=== PATIENT | female | born 1950 | race Caucasian/White ===

== ENCOUNTER 2019-07-28 18:51 | Emergency (ER) | payer MEDICARE, BC ==
--- NOTE | 2019-07-28 19:03 | EDM.PDOC ---
ED HPI GENERAL MEDICAL PROBLEM - General Stated Complaint: FALL Time Seen by Provider: 07/28/19 19:01 Source of Information: Reports: Patient History Limitations: Reports: No Limitations - History of Present Illness INITIAL COMMENTS - FREE TEXT/NARRATIVE: Patient comes emergency department today with complaints of an injury to the left wrist. Just prior to arrival the patient was sitting on a stool when she fell off landing on her left wrist. She is really unsure of how she fell on it or which way it went when she fell. She denies any injury to her shoulder humerus elbow or forearm. She denies any paresthesia of her left hand. She did not hit her head. There was no loss of consciousness. She is able to flex and extend the fingers appropriately. Is quite painful to flex and extend and rotate the wrist. She denies any paresthesias of the upper left extremity. - Related Data Home Meds: Home Meds Hydrocodone/Acetaminophen [Hydrocodone-Acetamin 5-325 mg] 1 each PO Q6HR PRN # 12 tablet 07/28/19 [Rx] Review of Systems - Review of Systems Review Of Systems: Comprehensive ROS is negative, except as noted in HPI. ED EXAM, GENERAL - Physical Exam Exam: See Below Exam Limited By: No Limitations General Appearance: Alert, WD/WN, No Apparent Distress Respiratory/Chest: No Respiratory Distress Cardiovascular: Normal Peripheral Pulses Peripheral Pulses: 2+: Radial (L), Radial (R), Posterior Tibial (L), Posterior Tibial (R), Dorsalis Pedis (L), Dorsalis Pedis (R) Extremities: No: Normal Inspection (Examination of left upper extremity shows quite a bit of swelling on the volar surface of the left distal wrist. There is no breaks in the skin. There is no overt deformity. Rest of the left upper extremity is unremarkable and atraumatic. No breaks in the skin.) Neurological: Alert, Oriented, Normal Cognition, No Motor/Sensory Deficits Psychiatric: Normal Affect, Normal Mood ED TRAUMA EXTREMITY PROCEDURES - Splinting Left Upper Extremity Splint Site: left forearm Pre-Procedure NV Status: Normal Post-Procedure NV Status: Normal Splint Material: Fiberglass Splint Design: Sugar Tong Applied & Form Fitted By: Provider Provider Post-Splint Application NV Check: NV Status Normal, Good Position Complications: No Course - Orders/Labs/Meds Meds: Medications Discontinued Medications Generic Name Dose Route Start Last Admin Trade Name Freq PRN Reason Stop Dose Admin Hydrocodone Bitart/Acetaminophen 1 packet 07/28/19 20:04 07/28/19 20:11 Take Home: Acetam/Hydrocodon 325-5 Mg, 5 Pack PO 07/28/19 20:05 1 packet ONETIME ONE Administration - Radiology Interpretation Free Text/Narrative:: Cute nondisplaced fracture distal radius metaphyseal seen on the AP and lateral views no evidence of significant displacement. - Re-Assessments/Exams Free Text/Narrative Re-Assessment/Exam: 07/28/19 20:31 A well molded Ortho-Glass sugar tong splint was placed the left arm in the position in neutral. With a stockinette and good padding prior to the application of the fiberglass splint. CMS was intact after the application. Only it was noted that the patient's blood pressure is quite elevated over 200 systolically. She has no chest pain or shortness of breath or difficulty breathing. No headache visual changes or disturbances. I would like to discuss with her at length about my concerns of her high blood pressure especially when she has peripheral vascular disease of her lower extremities with quite a bit of edema to her lower extremities that she relates is from blood clots and poor circulation to her lower extremities. She refuses a work- up of her blood pressure which is fine at this time as guided by the [employer] emergency physicians asymptomatic hypertension does not need initial of evaluation and management although her blood pressure is quite high. She refuses any work-up evaluation or care for her hypertension. She states that it is white coat syndrome. She is understanding of the risk of stroke dialysis and heart failure with this very high blood pressure that is not managed. Follow-up with primary care provider. She is understanding of the risk of hypertension untreated and her questions were answered. We will send her home with [place] for pain. Follow up with ortho in 1 week for recheck. She is comfortable with this plan and her questions answered. Departure - Departure Time of Disposition: 19:55 Disposition: Home, Self-Care 01 Clinical Impression: Radius distal fracture Qualifiers: Encounter type: initial encounter Fracture type: closed Fracture morphology: unspecified fracture morphology Laterality: left Qualified Code(s): S52.502A - Unspecified fracture of the lower end of left radius, initial encounter for closed fracture - Discharge Information Prescriptions: Hydrocodone/Acetaminophen [Hydrocodone-Acetamin 5-325 mg] 1 each PO Q6HR PRN # 12 tablet PRN Reason: Pain Instructions: Cast or Splint Care, Adult, [id number], Wrist Fracture Treated With Immobilization, [id number] Referrals: Nate Malcolm MD [Primary Care Provider] - Additional Instructions: Tylenol and or Ibuprofen as needed for pain. Splint at all times. Do not get the splint wet. Ice to area as much as possible in the next few days. Elevate above the level of the heart as much as possible. If pain not controlled with above. [place] 1 tablet every 6 hrs with food as needed for pain. Starter pack from the ED sent and Rx sent to [facility]. Return to the ED if new or worsening symptoms. Follow up with ortho in either [place] or [place] in 1 week for recheck. Hand surgery in [place] [phone]. [place] [phone] Follow up with PCP next available for evaluation of your blood pressure. Sepsis Event Note - Focused Exam Date Exam was Performed: 07/28/19 Time Exam was Performed: :27 - Assessment/Plan Assessment:: Left nondisplaced distal radius fracture. Orthoglass splint applied by myself. Hypertesion very high refuses any work up of it. Plan: Tylenol and or Ibuprofen as needed for pain. Splint at all times. Do not get the splint wet. Ice to area as much as possible in the next few days. Elevate above the level of the heart as much as possible. If pain not controlled with above. [place] 1 tablet every 6 hrs with food as needed for pain. Starter pack from the ED sent and Rx sent to [facility]. Return to the ED if new or worsening symptoms. Follow up with ortho in either [place] or [place] in 1 week for recheck. Hand surgery in [place] [phone]. [place] [phone] Follow up with PCP next available for recheck of blood pressure.
--- NOTE | 2019-07-28 19:50 | CR ---
[id number] RAD/RAD Wrist Left 3V Min Exam: RAD Wrist Left 3V Min Indication:FALL, LEFT WRIST INJURY Comparison: No prior imaging for comparison. Discussion: Acute nondisplaced fracture distal radial metaphysis seen on the AP and lateral views. No evidence of significant displacement. No evidence of intra-articular extension on the available views. No other acute findings. Diffuse bone demineralization. Impression: Acute nondisplaced distal radial metaphysis fracture. Asif Montgomery MD 07/28/19 1949 Thank you for allowing us to participate in the care of your patient.
[2019-07-28] MEDS ORDERED: Take Home: Acetaminophen/HYDROcodone 325-5 MG, 5 Tab Pack PO ONE (20:04)
== END 2019-07-28 20:18 | disposition home or self-care (01) ==
LOC: VM.ED 18:51
DX: S52.502A Unspecified fracture of the lower end of left radius, initial encounter for closed fracture (principal); W08.XXXA Fall from other furniture, initial encounter
CPT/HCPCS: 29125; 73110; 99283; A9270

== ENCOUNTER 2020-07-20 06:47 | Day surgery (SDC) | payer MEDICARE, BC ==
[2020-07-20] MEDS ORDERED: Lactated Ringers 1,000 ML IV SCH (07:00)
[2020-07-20] MEDS ORDERED: fentaNYL 100 MCG/2 ML SDV ONE (08:03)
[2020-07-20] MEDS ORDERED: Propofol 200 MG/20 ML SDV ONE ×2 (08:03→08:30)
--- NOTE | 2020-07-20 14:14 | OR ---
DATE OF SURGERY: 07/20/2020. REFERRING PROVIDER: Elvi Lerma MD PRE-OPERATIVE DIAGNOSES: 1. Positive FIT stool card. This is the patient's first colonoscopy. She denies any family history of colon cancer. 2. Chronic diarrhea with urgency since March. The patient averages 2 to 4 stools per day. She did have increased fecal calprotectin level. POST-OPERATIVE DIAGNOSES: 1. A total of 6 polyps removed today. a. 4 mm polyp at entry to the cecum, removed with cold snare. b. 5 mm polyp at 30 cm, removed with hot snare. c. 4 rectal polyps measuring 6 mm, 5 mm, 4 mm, and 4 mm, all removed using hot snare. 2. Mild sigmoid diverticulosis. 3. Normal-appearing distal ileum. Random biopsy x2 bites taken using cold forceps. 4. Questionable faint inflammation of the colonic mucosa throughout the colon. Random colon biopsies taken. PROCEDURE: Colonoscopy with polypectomy x6, all using snare with 5 of them being hot snare (random biopsies taken from the distal ileum as well as randomly throughout the colon). SURGEON: Leandro Gastelum M.D. ANESTHESIA: Monitored anesthesia care. BOWEL PREP: Fair to good. Did require moderate irrigation and suctioning. Radha, who goes by Liz, is a 70-year-old female who was brought to the endoscopy suite after discussing risks and benefits of the procedure. Informed consent was obtained for conscious sedation and colonoscopy with or without biopsy and/or polypectomy. We also discussed possibility of missed lesions. Pre-procedure exam was unremarkable. IV, oxygen, and monitors were placed. The patient was placed in the left lateral decubitus position. Sedation was administered and a digital rectal exam was performed and unremarkable except for some hemorrhoids with some irritation. Colonoscope was passed into the rectum and slowly advanced all the way to the cecum. Ileocecal valve was intubated and distal ileum was normal in appearance. Cold biopsy x2 bites were taken. Cecum was viewed and photographed. The colonoscope was slowly withdrawn and the mucosa was closed observed in a direct circumferential manner. The ascending colon was remarkable for a 4 mm polyp at the entry to the cecum, removed using cold snare. The transverse colon was unremarkable. The descending colon was unremarkable. The sigmoid colon revealed some mild diverticulosis. There is also a 5 mm polyp at 30 cm, removed using hot snare. Rectal mucosa revealed a total of 4 polyps ranging in size from 4 to 6 mm (see above). These were all removed using hot snare. Retroflexion was performed and rectal mucosa was unremarkable except for some minimal hemorrhoids. Scope was removed. The patient tolerated the procedure well. The patient was monitored until that baseline status. Discharge instructions were reviewed and the patient was discharged in good condition. COMPLICATIONS: None. TOTAL TIME: 37 minutes. ESTIMATED BLOOD LOSS: About 1 to 2 mL. RECOMMENDATIONS/FOLLOW-UP: We will await results of path report to determine ideal followup interval as well as need for any additional treatment or referral. I will wait and have her resume her warfarin tomorrow to limit any chance of bleeding from the polypectomy sites as well as the biopsy sites. I would like to kindly thank Dr. Lerma for this referral. DMB: 07/20/2020 11:51:41 MODL: 07/20/2020 13:47:09 /[id number]
== END 2020-07-20 10:25 | disposition home or self-care (01) ==
LOC: VM.SDS 06:47
PROVIDERS: ATTEND Family Medicine
DX: D12.0 Benign neoplasm of cecum (principal); D12.6 Benign neoplasm of colon, unspecified; K62.1 Rectal polyp; K52.832 Lymphocytic colitis; K57.30 Diverticulosis of large intestine without perforation or abscess without bleeding; K64.9 Unspecified hemorrhoids; K63.89 Other specified diseases of intestine; I10 Essential (primary) hypertension; E03.9 Hypothyroidism, unspecified; F17.210 Nicotine dependence, cigarettes, uncomplicated; Z88.0 Allergy status to penicillin; Z79.01 Long term (current) use of anticoagulants; Z79.890 Hormone replacement therapy; Z79.899 Other long term (current) drug therapy; Z86.718 Personal history of other venous thrombosis and embolism
CPT/HCPCS: 00811; 85610; 88305; J2704; J3010; J7120

== ENCOUNTER 2022-02-15 10:30 | Emergency (ER) | payer MEDICARE, BC ==
[2022-02-15 11:29] LABS: ANION GAP 18.3 mmol/L (5-15)
[2022-02-15] MEDS: Acetaminophen/oxyCODONE 325-5 MG Tab PO ONE (11:30)
[2022-02-15] MEDS: Sodium Chloride 0.9% 1,000 ML IV SCH (11:30)
== END 2022-02-15 12:35 | disposition home or self-care (01) ==
LOC: SUPCPDRO 10:30 → VM.ED 10:30
DX: S32.009A Unspecified fracture of unspecified lumbar vertebra, initial encounter for closed fracture (principal); N28.9 Disorder of kidney and ureter, unspecified; I10 Essential (primary) hypertension; Z88.0 Allergy status to penicillin; Z79.899 Other long term (current) drug therapy; Z79.01 Long term (current) use of anticoagulants; Z90.49 Acquired absence of other specified parts of digestive tract; Z90.710 Acquired absence of both cervix and uterus
CPT/HCPCS: 36415; 80048; 96360; 99283-25; 99284; A9270-GY; J7030

== ENCOUNTER 2024-09-29 15:14 | Inpatient (IN) | payer MEDICARE, BC ==
[2024-09-29] MEDS ORDERED: Ondansetron 4 MG/2 ML SDV IV PRN (16:11)
[2024-09-29 22:03] LABS: BLOOD UREA NITROGEN,BUN 26.0 mg/dL (7-18); CARBON DIOXIDE,CO2 26.0 mmol/L (21-32); CHLORIDE,CL 86.0 mmol/L (98-107); CREATININE 1.9 mg/dL (0.55-1.02); EST CRCL DRUG DOSING (CG) 22.81 mL/min; GLUCOSE RANDOM 151.0 mg/dL (70-99); POTASSIUM,K 4.5 mmol/L (3.5-5.1)
[2024-09-29 22:04] LABS: ESTIMATED GFR 28.0 mL/min (>=60)
[2024-09-29 22:05] LABS: SODIUM,NA 120.0 mmol/L (136-145)
[2024-09-30] MEDS: Tiotropium BR/Olodaterol HCL 4 GM Inhalation Spray 2.5mcg/1 dose; 10 doses INH SCH (06:34)
[2024-09-30 06:44] LABS: BASOPHILS ABSOLUTE AUTO 0.0 x10^3/uL (0.0-0.2); BASOPHILS PERCENT AUTO 0.5 % (0.2-1.2); EOSINOPHILS ABSOLUTE AUTO 0.1 x10^3/uL (0.0-0.5); EOSINOPHILS PERCENT AUTO 1.3 % (0.0-4.0); IMMATURE GRAN ABSOLUTE AUTO 0.04 x10^3/uL (0.00-0.07); IMMATURE GRAN PERCENT AUTO 1.10 % (0.00-0.43); LYMPHOCYTES ABSOLUTE AUTO 0.2 x10^3/uL (1.0-4.8); LYMPHOCYTES PERCENT AUTO 6.4 % (25.0-50.0); MONOCYTES ABSOLUTE AUTO 0.7 x10^3/uL (0.0-0.8); MONOCYTES PERCENT AUTO 17.2 % (2.0-11.0); NEUTROPHILS ABSOLUTE AUTO 2.8 x10^3/uL (1.8-7.7); NEUTROPHILS PERCENT AUTO 73.5 % (50.0-80.0); PLATELET COUNT,PLT 178 x10^3/uL (130-400); RED BLOOD CELL COUNT 3.12 x10^6/uL (4.00-5.50); WHITE BLOOD CELL COUNT,WBC 3.8 x10^3/uL (4.0-10.0)
[2024-09-30 06:46] LABS: A/G RATIO 0.66; ALANINE AMINOTRANSFERASE,ALT 9.0 U/L (14-59); ASPARTATE AMNIOTRANSFERASE,AST 19.0 U/L (15-37); BILIRUBIN TOTAL 0.9 mg/dL (0.2-1.0); BLOOD UREA NITROGEN,BUN 24.0 mg/dL (7-18); CARBON DIOXIDE,CO2 25.0 mmol/L (21-32); CHLORIDE,CL 89.0 mmol/L (98-107); CREATININE 1.7 mg/dL (0.55-1.02); EST CRCL DRUG DOSING (CG) 21.49 mL/min; GLUCOSE RANDOM 91.0 mg/dL (70-99); POTASSIUM,K 4.5 mmol/L (3.5-5.1); PRO B-TYPE NATRIUR PEPT,BNPPRO 1858.0 pg/mL (<=125); PROTEIN TOTAL,TP 5.3 g/dL (6.4-8.2); TSH ULTRASENSITIVE 2.208 uIU/mL (0.358-3.74)
[2024-09-30 06:49] LABS: ESTIMATED GFR 32.0 mL/min (>=60); SODIUM,NA 121.0 mmol/L (136-145)
[2024-09-30 06:51] LABS: INR 2.4 (0.9-1.1)
[2024-09-30] MEDS ORDERED: Flumazenil 0.1 MG/ML 5 ML MDV IVPUSH PRN (08:38)
[2024-09-30] MEDS ORDERED: LORazepam 2 MG/ML SDV IVPUSH PRN (08:38)
[2024-09-30] MEDS: Cyanocobalamin (Vitamin B12) 250 MCG Tab PO SCH (08:39)
[2024-09-30] MEDS: Cholecalciferol (Vitamin D3) 25 MCG Tab PO SCH (08:40)
[2024-09-30] MEDS: Magnesium Sulfate 4 GM/100 mL 4 GM in Premix Bag 1 BAG IV ONE (10:06)
[2024-09-30 14:58] LABS: PLATELET COUNT,PLT 203 x10^3/uL (130-400); RED BLOOD CELL COUNT 3.73 x10^6/uL (4.00-5.50); WHITE BLOOD CELL COUNT,WBC 5.4 x10^3/uL (4.0-10.0)
[2024-09-30 15:23] LABS: BAND PERCENT MAN 1 % (0-6); EOSINOPHILS ABSOLUTE MAN 0.1 x10^3/uL (0.0-0.5); EOSINOPHILS PERCENT MAN 1 % (0-4); LYMPHOCYTES ABSOLUTE MAN 0.2 x10^3/uL (1.0-4.8); LYMPHOCYTES PERCENT MAN 3 % (25-50); MONOCYTES ABSOLUTE MAN 0.6 x10^3/uL (0.0-0.8); MONOCYTES PERCENT MAN 12 % (2-11); NEUTROPHILS ABSOLUTE MAN 4.5 x10^3/uL (1.8-7.7); SEG NEUTROPHILS PERCENT MAN 83 % (50-80)
[2024-09-30 15:24] LABS: PLATELET COUNT ESTIMATE ADEQUATE
[2024-09-30 16:28] VITALS: BP 141/90; PULSE 91
[2024-09-30] MEDS: Sodium Chloride/Potassium Chloride Tab PO SCH (16:39)
== END 2024-09-30 16:55 | disposition home or self-care (01) | DRG 641 ==
LOC: VM.MS 15:25
PROVIDERS: ADMIT Nurse Practitioner Family; ATTEND Nurse Practitioner Family
DX: E87.1 Hypo-osmolality and hyponatremia (principal); J43.9 Emphysema, unspecified; E03.9 Hypothyroidism, unspecified; N18.9 Chronic kidney disease, unspecified; J44.9 Chronic obstructive pulmonary disease, unspecified; E53.8 Deficiency of other specified B group vitamins; E86.0 Dehydration; M54.9 Dorsalgia, unspecified; G89.29 Other chronic pain; E83.42 Hypomagnesemia; M81.0 Age-related osteoporosis without current pathological fracture; N18.30 Chronic kidney disease, stage 3 unspecified; I12.9 Hypertensive chronic kidney disease with stage 1 through stage 4 chronic kidney disease, or unspecified chronic kidney disease; Z85.118 Personal history of other malignant neoplasm of bronchus and lung; Z88.0 Allergy status to penicillin; Z90.49 Acquired absence of other specified parts of digestive tract; Z87.891 Personal history of nicotine dependence; Z86.718 Personal history of other venous thrombosis and embolism; Z98.890 Other specified postprocedural states; Z90.710 Acquired absence of both cervix and uterus; Z79.899 Other long term (current) drug therapy; Z79.01 Long term (current) use of anticoagulants
CPT/HCPCS: 36415; 80048; 80053; 82533; 82607; 83735; 83880; 84295; 84443; 85007; 85025; 85027; 85610; 94640; 97161-GP; A9270-GY; J3475; J7030